=== PATIENT | female | born 1950 | race Caucasian/White ===

== ENCOUNTER 2023-01-04 09:07 | Emergency (ER) | payer MEDICARE, MEDICAID ==
[2023-01-04] MEDS ORDERED: fentaNYL 100 MCG/2 ML SDV IVPUSH ONE (09:23)
[2023-01-04] MEDS ORDERED: Sodium Chloride 0.9% 10 ML Syringe FLUSH PRN (09:23)
[2023-01-04] MEDS ORDERED: Ondansetron 4 MG/2 ML SDV IV ONE (09:24)
[2023-01-04] MEDS ORDERED: Acetaminophen/oxyCODONE 325-5 MG Tab ONE (10:20)
== END 2023-01-04 10:42 | disposition home or self-care (01) ==
LOC: DL.ED 09:07
DX: S42.294A Other nondisplaced fracture of upper end of right humerus, initial encounter for closed fracture (principal); W06.XXXA Fall from bed, initial encounter
CPT/HCPCS: 73200; 96374; 96375; 99283; 99283-25; J2405; J3010; J3490

== ENCOUNTER 2023-05-03 09:02 | Emergency (ER) | payer MEDICARE, MEDICAID | END 2023-05-03 09:58 | disposition home or self-care (01) | LOC: DL.ED 09:02 | DX: S09.90XA Unspecified injury of head, initial encounter (principal); E78.00 Pure hypercholesterolemia, unspecified; I10 Essential (primary) hypertension; E11.9 Type 2 diabetes mellitus without complications; Z79.899 Other long term (current) drug therapy; W01.198A Fall on same level from slipping, tripping and stumbling with subsequent striking against other object, initial encounter | CPT/HCPCS: 99283 ==

== ENCOUNTER 2023-07-06 13:06 | Emergency (ER) | payer MEDICARE, MEDICAID ==
[2023-07-06] MEDS ORDERED: Sodium Chloride 0.9% 10 ML Syringe FLUSH PRN (13:52)
[2023-07-06 14:18] LABS: BASOPHILS PERCENT AUTO 0.3 % (0.0-1.0); EOSINOPHILS PERCENT AUTO 2.3 % (1.0-3.0); HEMATOCRIT 45.3 % (37.0-47.0); HEMOGLOBIN 14.6 g/dL (12.0-16.0); LYMPHOCYTES PERCENT AUTO 33.6 % (20.5-50.1); MEAN CORPUSCULAR HGB CONC 32.2 g/dL (33.0-35.0); MEAN CORPUSCULAR VOLUME 96.2 fL (80-100); MONOCYTES PERCENT AUTO 9.2 % (2-8); NEUTROPHILS PERCENT AUTO 54.6 % (42.2-75.2); PLATELET COUNT,PLT 177 10^3/uL (150-450); RED BLOOD CELL COUNT 4.71 10^6/uL (4.2-5.4)
[2023-07-06 14:37] LABS: PTT,PARTIAL THROMBOPLSTIN TIME 22.7 SEC (22.0-34.0)
[2023-07-06 14:40] LABS: A/G RATIO 0.9; ALANINE AMINOTRANSFERASE,ALT 39 U/L (14-59); ALBUMIN 3.7 g/dL (3.4-5.0); ALKALINE PHOSPHATASE 104 U/L (46-116); ANION GAP 10.4 mEq/L (7-13); ASPARTATE AMNIOTRANSFERASE,AST 19 U/L (15-37); B-TYPE NATRIURETIC PEPTIDE,BNP < 5 pg/ml (0-100); BILIRUBIN TOTAL 0.3 mg/dL (0.2-1.0); BLOOD UREA NITROGEN,BUN 12 mg/dL (7-18); BUN/CREATININE RATIO 14.6 (No establ ref range); CALCIUM 9.2 mg/dL (8.5-10.1); CARBON DIOXIDE,CO2 31 mmol/L (21-32); CHLORIDE,CL 104 mmol/L (98-107); CREATININE 0.82 mg/dL (0.55-1.02); EST CRCL DRUG DOSING (CG) 50.49 mL/min; GLUCOSE RANDOM 88 mg/dL (70-99); POTASSIUM,K 4.4 mmol/L (3.5-5.1); PROTEIN TOTAL,TP 7.9 g/dL (6.4-8.2); SODIUM,NA 141 mmol/L (136-145)
[2023-07-06 14:41] LABS: C-REACTIVE PROTEIN < 0.2 mg/dL (0.0-0.9); ESTIMATED GFR 77 mL/min (>=60)
[2023-07-06 14:43] LABS: LACTIC ACID 1.2 mmol/L (0.4-2.0)
== END 2023-07-06 15:36 | disposition home or self-care (01) ==
LOC: DL.ED 13:06
DX: I31.39 Other pericardial effusion (noninflammatory) (principal); E11.9 Type 2 diabetes mellitus without complications; E78.00 Pure hypercholesterolemia, unspecified; I10 Essential (primary) hypertension; I82.4Y2 Acute embolism and thrombosis of unspecified deep veins of left proximal lower extremity; R06.02 Shortness of breath; M79.89 Other specified soft tissue disorders; R79.89 Other specified abnormal findings of blood chemistry; I25.10 Atherosclerotic heart disease of native coronary artery without angina pectoris; Z79.899 Other long term (current) drug therapy
CPT/HCPCS: 36415; 71275; 80053; 83605; 83880; 84145; 84484; 85025; 85610; 85651; 85730; 86140; 93005; 93010; 99283; 99284; Q9967; J3490

== ENCOUNTER 2023-10-02 12:48 | Emergency (ER) | payer MEDICARE, MEDICAID | END 2023-10-02 14:11 | disposition home or self-care (01) | LOC: DL.ED 12:48 | DX: S86.912A Strain of unspecified muscle(s) and tendon(s) at lower leg level, left leg, initial encounter (principal); E11.9 Type 2 diabetes mellitus without complications; I10 Essential (primary) hypertension; E78.00 Pure hypercholesterolemia, unspecified; Z79.01 Long term (current) use of anticoagulants; Z79.899 Other long term (current) drug therapy | CPT/HCPCS: 93971; 99283 ==

== ENCOUNTER 2023-11-20 16:52 | Emergency (ER) | payer MEDICARE, MEDICAID | END 2023-11-20 18:05 | disposition home or self-care (01) | LOC: DL.ED 16:52 | DX: S76.112A Strain of left quadriceps muscle, fascia and tendon, initial encounter (principal); I10 Essential (primary) hypertension; E78.00 Pure hypercholesterolemia, unspecified; E11.9 Type 2 diabetes mellitus without complications; Z79.899 Other long term (current) drug therapy; X58.XXXA Exposure to other specified factors, initial encounter | CPT/HCPCS: 93971; 99283 ==

== ENCOUNTER 2024-11-03 08:47 | Emergency (ER) | payer MEDICARE, MEDICAID ==
[2024-11-03 09:14] LABS: BASOPHILS PERCENT AUTO 0.3 % (0.0-1.0); EOSINOPHILS PERCENT AUTO 1.3 % (1.0-3.0); HEMATOCRIT 50.3 % (37.0-47.0); HEMOGLOBIN 16.8 g/dL (12.0-16.0); LYMPHOCYTES PERCENT AUTO 41.5 % (20.5-50.1); MEAN CORPUSCULAR HEMOGLOBIN 31.8 pg (27.0-34.0); MEAN CORPUSCULAR HGB CONC 33.4 g/dL (33.0-35.0); MEAN CORPUSCULAR VOLUME 95.1 fL (80-100); MONOCYTES PERCENT AUTO 9.1 % (2-8); NEUTROPHILS PERCENT AUTO 47.8 % (42.2-75.2); PLATELET COUNT,PLT 163 10^3/uL (150-450); RED BLOOD CELL COUNT 5.29 10^6/uL (4.2-5.4); WHITE BLOOD CELL COUNT,WBC 6.9 10^3/uL (5.0-10.0)
[2024-11-03 09:32] LABS: ALANINE AMINOTRANSFERASE,ALT 69 U/L (14-59); ALKALINE PHOSPHATASE 101 U/L (46-116); ANION GAP 13.2 mEq/L (7-13); ASPARTATE AMNIOTRANSFERASE,AST 50 U/L (15-37); BILIRUBIN TOTAL 0.8 mg/dL (0.2-1.0); BLOOD UREA NITROGEN,BUN 17 mg/dL (7-18); BUN/CREATININE RATIO 16.2 (No establ ref range); CARBON DIOXIDE,CO2 29 mmol/L (21-32); CHLORIDE,CL 106 mmol/L (98-107); CREATININE 1.05 mg/dL (0.55-1.02); GLUCOSE RANDOM 133 mg/dL (70-99); POTASSIUM,K 4.2 mmol/L (3.5-5.1); PROTEIN TOTAL,TP 8.1 g/dL (6.4-8.2); SODIUM,NA 144 mmol/L (136-145)
[2024-11-03 09:38] LABS: CALCIUM 9.6 mg/dL (8.5-10.1)
[2024-11-03 09:42] LABS: ESTIMATED GFR 56 mL/min (>=60)
[2024-11-03] MEDS: Acetaminophen 325 MG Tab PO ONE (09:57)
== END 2024-11-03 10:58 | disposition other institution (70) ==
LOC: DL.ED 08:47
DX: M25.562 Pain in left knee (principal); N17.9 Acute kidney failure, unspecified; I10 Essential (primary) hypertension; E78.00 Pure hypercholesterolemia, unspecified; E11.9 Type 2 diabetes mellitus without complications; Z79.899 Other long term (current) drug therapy
CPT/HCPCS: 36415; 70450; 73564-LT; 80053; 85025; 99285; A9270-GY

== ENCOUNTER 2025-10-20 12:11 | Emergency (ER) | payer MEDICARE, MEDICAID | END 2025-10-20 12:44 | disposition home or self-care (01) | LOC: DL.ED 12:11 | DX: L20.9 Atopic dermatitis, unspecified (principal); I10 Essential (primary) hypertension; E78.00 Pure hypercholesterolemia, unspecified; E11.9 Type 2 diabetes mellitus without complications; Z79.899 Other long term (current) drug therapy | CPT/HCPCS: 99282 ==

== ENCOUNTER 2025-10-21 09:39 | Emergency (ER) | payer MEDICARE, MEDICAID ==
[2025-10-21 10:26] LABS: BASOPHILS PERCENT AUTO 0.2 % (0.0-1.0); EOSINOPHILS PERCENT AUTO 0.5 % (1.0-3.0); LYMPHOCYTES PERCENT AUTO 21.5 % (20.5-50.1); MONOCYTES PERCENT AUTO 8.9 % (2-8); NEUTROPHILS PERCENT AUTO 68.9 % (42.2-75.2); PLATELET COUNT,PLT 142 10^3/uL (150-450); RED BLOOD CELL COUNT 4.49 10^6/uL (4.2-5.4); WHITE BLOOD CELL COUNT,WBC 9.9 10^3/uL (5.0-10.0)
[2025-10-21 10:48] LABS: ALANINE AMINOTRANSFERASE,ALT 30.0 U/L (14-59); ASPARTATE AMNIOTRANSFERASE,AST 20.0 U/L (15-37); BILIRUBIN TOTAL 1.1 mg/dL (0.2-1.0); BLOOD UREA NITROGEN,BUN 11.0 mg/dL (7-18); CARBON DIOXIDE,CO2 27.0 mmol/L (21-32); CHLORIDE,CL 103.0 mmol/L (98-107); CREATININE 1.03 mg/dL (0.55-1.02); EST CRCL DRUG DOSING (CG) 49.07 mL/min; GLUCOSE RANDOM 220.0 mg/dL (70-99); POTASSIUM,K 4.1 mmol/L (3.5-5.1); PROTEIN TOTAL,TP 7.8 g/dL (6.4-8.2); SODIUM,NA 140.0 mmol/L (136-145)
[2025-10-21 10:51] LABS: A/G RATIO 0.73; ESTIMATED GFR 57.0 mL/min (>=60)
[2025-10-21 10:56] LABS: INR 1.2 (0.9-1.2); PTT,PARTIAL THROMBOPLSTIN TIME 28.1 SEC (22.0-34.0)
[2025-10-21] MEDS: Iopamidol 755 Mg/ML 100 ML Bottle IVPUSH ONE (11:06)
== END 2025-10-21 12:01 | disposition home or self-care (01) ==
LOC: DL.ED 09:39
DX: S42.294A Other nondisplaced fracture of upper end of right humerus, initial encounter for closed fracture (principal); I10 Essential (primary) hypertension; E78.00 Pure hypercholesterolemia, unspecified; E11.9 Type 2 diabetes mellitus without complications; Z79.899 Other long term (current) drug therapy; Z79.01 Long term (current) use of anticoagulants; X58.XXXA Exposure to other specified factors, initial encounter
CPT/HCPCS: 36415; 70496; 70498; 73030; 74177; 80053; 82947; 83735; 84484; 85025; 85610; 85730; 99284; Q9967

== ENCOUNTER 2025-11-03 10:34 | Emergency (ER) | payer MEDICARE, MEDICAID ==
[2025-11-03 10:51] LABS: APPEARANCE,URINE CLEAR (CLEAR); GLUCOSE,URINE NEGATIVE (NEGATIVE); OCCULT BLOOD,URINE NEGATIVE (NEGATIVE)
== END 2025-11-03 11:24 | disposition home or self-care (01) ==
LOC: DL.ED 10:34
DX: N76.0 Acute vaginitis (principal); I10 Essential (primary) hypertension; E78.00 Pure hypercholesterolemia, unspecified; E11.9 Type 2 diabetes mellitus without complications; Z79.899 Other long term (current) drug therapy; Z79.01 Long term (current) use of anticoagulants
CPT/HCPCS: 81003; 99285

== ENCOUNTER 2025-11-07 02:40 | Inpatient (IN) | payer MEDICARE, MEDICAID ==
[2025-11-07 03:17] LABS: BASOPHILS PERCENT AUTO 0.2 % (0.0-1.0); EOSINOPHILS PERCENT AUTO 0.2 % (1.0-3.0); LYMPHOCYTES PERCENT AUTO 5.9 % (20.5-50.1); MONOCYTES PERCENT AUTO 10.1 % (2-8); NEUTROPHILS PERCENT AUTO 83.6 % (42.2-75.2); PLATELET COUNT,PLT 316 10^3/uL (150-450); RED BLOOD CELL COUNT 3.83 10^6/uL (4.2-5.4); WHITE BLOOD CELL COUNT,WBC 10.7 10^3/uL (5.0-10.0)
[2025-11-07 03:45] LABS: ALANINE AMINOTRANSFERASE,ALT 37 U/L (14-59); ASPARTATE AMNIOTRANSFERASE,AST 35 U/L (15-37); BILIRUBIN TOTAL 0.7 mg/dL (0.2-1.0); BLOOD UREA NITROGEN,BUN 17 mg/dL (7-18); CARBON DIOXIDE,CO2 25 mmol/L (21-32); CHLORIDE,CL 102 mmol/L (98-107); CREATININE 1.18 mg/dL (0.55-1.02); GLUCOSE RANDOM 203 mg/dL (70-99); POTASSIUM,K 3.4 mmol/L (3.5-5.1); PROTEIN TOTAL,TP 7.2 g/dL (6.4-8.2); SODIUM,NA 139 mmol/L (136-145)
[2025-11-07 03:51] LABS: A/G RATIO 0.44; ESTIMATED GFR 49 mL/min (>=60)
[2025-11-07 03:59] LABS: APPEARANCE,URINE CLOUDY (CLEAR); GLUCOSE,URINE NEGATIVE (NEGATIVE); OCCULT BLOOD,URINE LARGE (NEGATIVE)
[2025-11-07 04:00] LABS: LACTIC ACID 2.6 mmol/L (0.4-2.0)
[2025-11-07 04:10] LABS: EPITHELIAL CELLS,URINE FEW /HPF (NOT SEEN); YEAST,URINE FEW /HPF (NOT SEEN)
[2025-11-07] MEDS ORDERED: 50% Dextrose in Water 50 ML Syringe IVPUSH PRN (07:15)
[2025-11-07] MEDS: Potassium Chloride 10 MEQ Tab.ER PO SCH (08:56)
[2025-11-07 08:59] LABS: LACTIC ACID 0.9 mmol/L (0.4-2.0)
[2025-11-07] MEDS: Fluticasone NASAL Spray 16 GM Bottle NAS SCH (09:02)
[2025-11-07] MEDS: Potassium Chloride 20 MEQ in Premix Bag 1 BAG IV ONE (10:27)
[2025-11-07] MEDS: Lactated Ringers 1,000 ML IV SCH (10:28)
[2025-11-07 11:28] LABS: CORONAVIRUS COVID-19 NAA NEGATIVE (NEGATIVE); INFLUENZA A NAA NEGATIVE (NEGATIVE); INFLUENZA B NAA NEGATIVE (NEGATIVE); RESPIRATORY SYNCYTIAL VIR NAA NEGATIVE (NEGATIVE)
[2025-11-08 06:09] LABS: BASOPHILS PERCENT AUTO 0.4 % (0.0-1.0); EOSINOPHILS PERCENT AUTO 0.7 % (1.0-3.0); LYMPHOCYTES PERCENT AUTO 22.2 % (20.5-50.1); MONOCYTES PERCENT AUTO 12.4 % (2-8); NEUTROPHILS PERCENT AUTO 64.3 % (42.2-75.2); PLATELET COUNT,PLT 301 10^3/uL (150-450); RED BLOOD CELL COUNT 3.88 10^6/uL (4.2-5.4); WHITE BLOOD CELL COUNT,WBC 9.0 10^3/uL (5.0-10.0)
[2025-11-08 06:27] LABS: BLOOD UREA NITROGEN,BUN 9.0 mg/dL (7-18); CARBON DIOXIDE,CO2 33.0 mmol/L (21-32); CHLORIDE,CL 109.0 mmol/L (98-107); CREATININE 0.85 mg/dL (0.55-1.02); EST CRCL DRUG DOSING (CG) 57.32 mL/min; GLUCOSE RANDOM 91.0 mg/dL (70-99); PHOSPHORUS 2.5 mg/dL (2.6-4.7); POTASSIUM,K 3.5 mmol/L (3.5-5.1); SODIUM,NA 147.0 mmol/L (136-145)
[2025-11-08 06:30] LABS: ESTIMATED GFR 72.0 mL/min (>=60)
[2025-11-09] MEDS: Ciprofloxacin in D5W 400 MG in Premix Bag 1 BAG IV SCH (09:29)
[2025-11-10 06:00] LABS: BASOPHILS PERCENT AUTO 0.3 % (0.0-1.0); EOSINOPHILS PERCENT AUTO 1.7 % (1.0-3.0); LYMPHOCYTES PERCENT AUTO 19.3 % (20.5-50.1); MONOCYTES PERCENT AUTO 7.9 % (2-8); NEUTROPHILS PERCENT AUTO 70.8 % (42.2-75.2); PLATELET COUNT,PLT 303 10^3/uL (150-450); RED BLOOD CELL COUNT 3.56 10^6/uL (4.2-5.4); WHITE BLOOD CELL COUNT,WBC 9.6 10^3/uL (5.0-10.0)
[2025-11-10 13:03] LABS: SODIUM,NA 143 mmol/L (136-145)
== END 2025-11-10 11:51 | disposition swing bed (61) | DRG 871 ==
LOC: DL.ED 02:40 → DL.MS 04:25
PROVIDERS: ADMIT Internal Medicine; ATTEND Internal Medicine
DX: R53.1 Weakness (principal); R65.10 Systemic inflammatory response syndrome (SIRS) of non-infectious origin without acute organ dysfunction; N39.0 Urinary tract infection, site not specified; A41.59 Other Gram-negative sepsis; G92.8 Other toxic encephalopathy; E87.20 Acidosis, unspecified; E11.9 Type 2 diabetes mellitus without complications; N17.9 Acute kidney failure, unspecified; L03.113 Cellulitis of right upper limb; A41.81 Sepsis due to Enterococcus; R65.20 Severe sepsis without septic shock; E78.00 Pure hypercholesterolemia, unspecified; I10 Essential (primary) hypertension; M19.90 Unspecified osteoarthritis, unspecified site; F03.90 Unspecified dementia, unspecified severity, without behavioral disturbance, psychotic disturbance, mood disturbance, and anxiety; E86.0 Dehydration; R62.50 Unspecified lack of expected normal physiological development in childhood; E87.6 Hypokalemia; E11.65 Type 2 diabetes mellitus with hyperglycemia; M10.9 Gout, unspecified; F90.9 Attention-deficit hyperactivity disorder, unspecified type; Z79.899 Other long term (current) drug therapy; Z79.01 Long term (current) use of anticoagulants; Z79.1 Long term (current) use of non-steroidal anti-inflammatories (NSAID)
CPT/HCPCS: 71045; 80053; 81001; 83036; 83605; 83690; 83735; 83880; 84484; 85025; 87040 ×2; 87077; 87086; 87088 ×2; 87186 ×3; 93010; 96361; 96374; 99285 ×2; J0696; J7030; 36415; 73030-RT; 80048; 82947; 84100; 87637; 93005; 97116-GP; 97161-GP; 97165-GO; 97530-GO; 99223; 99233; 99239; A9270-GY; J0744; J1271; J1815-GY; J3480; J7120